=== PATIENT | male | born 1950 | race American Indian/Alaskan Native ===

== ENCOUNTER 2017-02-24 12:21 | Emergency (ER) | payer OTHER ==
[2017-02-24 12:31] VITALS: BP 146/84
[2017-02-24 13:24] LABS: Basophils % (Auto) 1.4 % (0.0-1.8); Eosinophils % (Auto) 5.9 % (0.0-4.3); Hematocrit 45.4 % (35.5-45.6); Hemoglobin 15.8 gm/dl (11.8-15.2); Mean Corpuscular HGB Conc 35 % (32-34); Mean Corpuscular Hemoglobin 30 pg (28-32); Mean Corpuscular Volume 86 fl (84-94); Platelet Count 158 K/mm3 (140-440); Red Blood Count 5.29 M/mm3 (3.65-5.03); Red Cell Distribution Width 12.6 % (13.2-15.2); White Blood Count 5.4 K/mm3 (4.5-11.0)
[2017-02-24 13:27] LABS: Anion Gap 18 mmol/L; BUN/Creatinine Ratio 12; Blood Urea Nitrogen 13 mg/dL (9-20); Calcium 9.2 mg/dL (8.4-10.2); Carbon Dioxide 25 mmol/L (22-30); Chloride 101.3 mmol/L (98-107); Glucose 106 mg/dL (75-100); Potassium 4.2 mmol/L (3.6-5.0); Sodium 140 mmol/L (137-145)
--- NOTE | 2017-02-24 13:36 | Cat Scan Report ---
CT scan of facial bones: History: Syncope. Left eye injury. Findings: There is soft tissue swelling noted of the anteroinferior left orbit. There is also noted air in the retrobulbar left orbit . There is a strong suspicion of fracture of the floor of the left orbit. There is no protrusion of soft tissue identified. There is suspicion of fracture of the medial wall of the orbit. No fluid is seen in the maxillary sinuses and ethmoid sinuses. Nasal cavity appears normal. Nasal septum is midline without any evidence of fracture. Impression: Findings as detailed above. Strong suspicion of nondisplaced fracture of the floor of the orbit and medial wall of the orbit.
--- NOTE | 2017-02-24 13:38 | Cat Scan Report ---
CT scan of head without IV contrast: History: Syncope with fall. Findings: Ventricles are normal in size and midline in location. No evidence of acute ischemia, hemorrhage or mass. No extra-axial fluid collection. Normal brainstem and cerebellum. Impression: No acute intracranial abnormality.
[2017-02-24 13:39] LABS: Bilirubin,Urine NEG (Negative); Blood,Urine NEG (Negative); Ketones,Urine NEG (Negative); Leukocyte Esterase,Urine NEG (Negative); Nitrite,Urine NEG (Negative); Protein,Urine <15 mg/dL mg/dL (Negative); WBC,Urine < 1.0 /HPF (0.0-6.0)
--- NOTE | 2017-02-24 15:36 | Emergency Department Report ---
ED Syncope HPI - General Chief Complaint: Syncope Stated Complaint: LEFT EYE PAIN - History of Present Illness Initial Comments: 67-year-old male presents with complaint of episode of brief loss of consciousness last night. Patient states he was drinking wine had a muscle relaxant briefly became lightheaded and fell down and hit his face on the ground. Possible loss of consciousness for a few seconds. Patient states that when he got up he noticed he had pain in the bridge of his nose and throbbing pain in his left eye. Patient is awake alert and oriented 3 does not appear to be in acute distress. Denies chest pain palpitations shortness of breath nausea vomiting dysuria or increased urinary frequency. States he has some redness around the white aspect of his left eye. Denies current headache or lightheadedness or blurry vision. Patient is ambulatory without assistance Context: standing Loss of Consciousness: brief (seconds) Current Symptoms: other (left eye and nose pain) - Related Data Allergies/Adverse Reactions: Allergies No Known Allergies Allergy (Unverified 02/24/17 12:31) Home Medications: Ambulatory Orders Naphazoline HCl/Pheniramine [Naphcon-A Eye Drops] 1 drop OP Q4H PRN #1 drops ED Review of Systems ROS: Stated complaint: LEFT EYE PAIN Other details as noted in HPI Constitutional: denies: chills, fever Eyes: denies: eye pain, eye discharge, vision change ENT: as per HPI. denies: ear pain, throat pain Respiratory: denies: cough, shortness of breath, wheezing Cardiovascular: denies: chest pain, palpitations Endocrine: no symptoms reported Gastrointestinal: denies: abdominal pain, nausea, diarrhea Genitourinary: denies: urgency, dysuria Musculoskeletal: denies: back pain, joint swelling, arthralgia Skin: denies: rash, lesions Neurological: denies: headache, weakness, paresthesias Psychiatric: denies: anxiety, depression Hematological/Lymphatic: denies: easy bleeding, easy bruising ED Past Medical Hx - Past Medical History Previous Medical History?: No - Surgical History Past Surgical History?: No - Social History Smoking Status: Never Smoker Substance Use Type: Alcohol - Medications Home Medications: Home Medications Medication Instructions Recorded Confirmed Last Taken Type Naphazoline HCl/Pheniramine 1 drop OP Q4H PRN #1 drops 02/24/17 Unknown Rx [Naphcon-A Eye Drops] ED Physical Exam - General Limitations: No Limitations General appearance: alert, in no apparent distress - Head Head exam: Present: atraumatic, normocephalic - Eye Eye exam: Present: normal appearance, PERRL, EOMI, periorbital tenderness (left eye) - Expanded Eye Exam Expanded Eyelids: Normal Inspection: Right Pupils: Regular, Round: Bilateral, Reactive: Bilateral Sclera/Conjunctival: Injection: Left, Hemorrhage: Left (some conjunctival hemorrhage left eye) Posterior chamber: Deferred: Bilateral Visual acuity (R) = 20/: 20 Visual acuity (L) = 20/: 20 With correction: Yes - ENT ENT exam: Present: mucous membranes moist, other (ecchymosis around bridge of nose or some left eye side) - Neck Neck exam: Present: normal inspection, full ROM (neck flexion and extension intact) - Respiratory Respiratory exam: Present: normal lung sounds bilaterally. Absent: respiratory distress - Cardiovascular Cardiovascular Exam: Present: regular rate, normal rhythm. Absent: systolic murmur, diastolic murmur, rubs, gallop - GI/Abdominal GI/Abdominal exam: Present: soft, normal bowel sounds - Rectal Rectal exam: Present: deferred - Extremities Exam Extremities exam: Present: normal inspection - Back Exam Back exam: Present: normal inspection, full ROM - Neurological Exam Neurological exam: Present: alert, oriented X3, CN II-XII intact, normal gait - Expanded Neurological Exam Expanded Patient oriented to: Present: person, place, time Cranial nerves: EOM's Intact: Normal, Facial Sensation: Normal Cerebellar function: Finger to Nose: Normal Sensory exam: Upper Extremity Light Touch: Normal, Lower Extremity Light Touch: Normal Motor strength exam: RUE: 5, LUE: 5, RLE: 5, LLE: 5 Best Eye Response ([place]): (4) open spontaneously Best Motor Response ([place]): (6) obeys commands Best Verbal Response ([place]): (5) oriented Kurt Total: 15 - Psychiatric Psychiatric exam: Present: normal affect, normal mood - Skin Skin exam: Present: warm, dry, intact, normal color. Absent: rash ED Course Vital Signs 02/24/17 12:27 Temperature 98.7 F Pulse Rate 74 Respiratory 18 Rate Blood Pressure 146/84 O2 Sat by Pulse 100 Oximetry ED Medical Decision Making - Lab Data Result diagrams: 02/24/17 12:51 02/24/17 12:51 - Medical Decision Making A/P: Syncopal episode, left subconjunctival hemorrhage, nasal fracture 1-case discussed with Dr. Marquis. As patient had episode of syncope given patient's age patient requires further workup for different etiologies of syncope 2-subconjunctival hemorrhage. Artificial teardrops. Patient's visual acuity is intact. Extraocular movements are intact. CT head shows no acute renal hemorrhage or skull fracture, CT facial bones show nasal fracture 3-patient signed out AGAINST MEDICAL ADVICE. RN Mr Loera witnessed conversation with pt and witnessed AMA. I informed him of my discussion with Dr. Marquis regarding this case. As per Dr. Marquis it is appropriate to admit this patient for further observation and testing. Patient does not wish to do so, states he has other obligations he must attend to. Patient is awake alert and oriented 3 fully lucid 4- I referred patient to primary care, ENT and advised them to return as soon as possible. 5- I informed charge attendant Lisa of scenario Critical care attestation.: If time is entered above; I have spent that time in minutes in the direct care of this critically ill patient, excluding procedure time. ED Disposition Clinical Impression: Subconjunctival hemorrhage of left eye, Left against medical advice Nasal bone fracture Qualifiers: Encounter type: initial encounter Fracture type: closed Qualified Code(s): S02.2XXA - Fracture of nasal bones, initial encounter for closed fracture Disposition: DC-01 TO HOME OR SELFCARE Is pt being admited?: No Does the pt Need Aspirin: No Condition: Stable Instructions: Nasal Fracture (ED), Subconjunctival Hemorrhage (ED), Syncope (ED ), Against Medical Advice (ED) Prescriptions: Naphazoline HCl/Pheniramine [Naphcon-A Eye Drops] 1 drop OP Q4H PRN #1 drops PRN Reason: Dry Eye(S) Referrals: HAFSA WETZEL MD [Staff Physician] - 3-5 Days [facility] [Outside] - 3-5 Days [facility] [Provider Group] - 3-5 Days [facility] [Provider Group] - 3-5 Days WILLEM JOHN MD [Staff Physician] - 3-5 Days Forms: AMA Form, Work/School Release Form(ED) Time of Disposition: 15:36
[2017-02-24 15:50] LABS: INR 0.89 (0.87-1.13)
[2017-02-24 15:51] LABS: Partial Thromboplastin Time 28.4 Sec. (24.2-36.6)
== END 2017-02-24 15:50 | disposition home or self-care (01) ==
LOC: ED 12:21
DX: S02.2XXA Fracture of nasal bones, initial encounter for closed fracture (principal); H11.32 Conjunctival hemorrhage, left eye; W01.10XA Fall on same level from slipping, tripping and stumbling with subsequent striking against unspecified object, initial encounter; Y93.89 Activity, other specified; Y99.8 Other external cause status; Y92.89 Other specified places as the place of occurrence of the external cause
CPT/HCPCS: 36415; 70450; 70486; 80048; 81001; 84484; 85025; 85610; 85730; 93005; 93010